=== PATIENT | male | born 1985 | race Asian ===

== ENCOUNTER 2023-02-20 14:39 | Outpatient (CLI) | payer OTHER ==
--- NOTE | 2023-02-21 10:28 | MRI Report ---
PROCEDURE: KNEE WO - LT INDICATIONS: KNEE PAIN TECHNIQUE: Noncontrast sagittal PD fast spin echo and T2 fast spin echo with fat saturation, sagittal 3-D gradie nt sequence with fat saturation; coronal T1 spin echo and PD fast spin echo with fat saturation, and axial PD fast spin echo with fat saturation through the knee. COMPARISON: None. FINDINGS: Image quality: Excellent. There is a near-complete full-thickness tear of the ACL with a few superior fibers remaining intact. PCL is unremarkable. There is a oblique tear involving posterior horn of the patient's medial meniscus extending to the in ferior joint surface. Lateral meniscus, collateral ligaments, and the extensor mechanism appear withi n normal limits. 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 Remain carlos of the articular cartilage appears intact. There is a small knee joint effusion. No Louis's cyst is identified. IMPRESSION: 1. Oblique tear involving the posterior horn of the patient's medial meniscus extending to the inferi or joint surface. 2. There is a partial thickness tear of the ACL present with a few intact superior fibers remaining. 3. [id number] chondromalacia patellofemoral joint. 4. Small knee joint effusion. Reviewed by: Chapincito Sahni MD on 02/21/2023 10:27 AM PST Approved by: Chapincito Sahni MD on 02/21/2023 10:27 AM PST Station ID: [id number]
== END 2023-02-20 14:40 | disposition home or self-care (01) ==
LOC: DI 14:39
PROVIDERS: ATTEND Physician Assistant
DX: S83.242A Other tear of medial meniscus, current injury, left knee, initial encounter (principal); S83.512A Sprain of anterior cruciate ligament of left knee, initial encounter; M94.262 Chondromalacia, left knee; M25.462 Effusion, left knee